=== PATIENT | female | born 1945 | race Caucasian/White ===

== ENCOUNTER → 2022-12-30 11:09 | Outpatient (CLI) | payer MEDICARE, SELFPAY ==
--- NOTE | ~2022-12-30 | MR_ITS ---
EXAMINATION: MR pituitary wo/w con DATE: 12/30/2022 12:03 INDICATION: Abnormal results of other endocrine function studies. TECHNIQUE: Magnetic resonance imaging (MRI) of the brain and brainstem was performed without and with 12 mL MultiHance intravenous contrast. COMPARISON: None. FINDINGS: The pituitary is normal in size with height of 5 mm. There is no intracranial hemorrhage, a cute infarction, or abnormal intracranial mass lesion. There are scattered areas of nonspecific incre ased T2-weighted signal intensity in the cerebral white matter, which is within normal limits for the patient's age. The ventricles are normal in size. There is an effusion of the right petrous apex. Th ere are likely changes of ocular lens replacement surgeries. The paranasal sinuses are clear. IMPRESSION: 1. Normal aging brain. Normal pituitary. Reviewed, dictated and finalized at location A.
== END ==
PROVIDERS: PCP Internal Medicine; Visit Provider Internal Medicine Endocrinology, Diabetes & Metabolism
DX: R94.7 Abnormal results of other endocrine function studies (principal)
CPT/HCPCS: 70553; A9577